=== PATIENT | female | born 1990 | race Caucasian/White ===

== ENCOUNTER 2020-06-22 00:23 | Inpatient (IN) | payer MEDICAID ==
[~2020-06-22] VITALS: Ht 157.5 cm; Wt 74.8 kg
[2020-06-22] MEDS ORDERED: PHISODERM TOP SOLN 240ML BTL TOP PRN (01:00)
[2020-06-22] MEDS ORDERED: WITCH HAZEL-GLYCERIN PAD TOP PRN (01:00)
[2020-06-22] MEDS ORDERED: BUTORPHANOL TARTRATE 2 MG/1 ML VIAL IV PRN ×2 (01:00)
[2020-06-22] MEDS ORDERED: LIDOCAINE 2%HCL (LOCAL ANESTH.) INJ 20ML MDV IJ ONE (01:00)
[2020-06-22] MEDS ORDERED: PROMETHAZINE HCL 25 MG/ML 1ML IV PRN (01:00)
[2020-06-22] MEDS ORDERED: DERMOPLAST 60ML BOTTLE TOP PRN (01:00)
[2020-06-22] MEDS ORDERED: PREN-129 OR (01:12)
[2020-06-22] MEDS ORDERED: LACT. RINGERS/OXYTOCIN 20UNITS 1,000 ML IV SCH (01:15)
[2020-06-22] MEDS ORDERED: LACT. RINGERS/OXYTOCIN 20UNITS 1,000 ML IV ONE (01:15)
[2020-06-22] MEDS ORDERED: TERBUTALINE SULFATE 1 MG/ML 1ML VIAL SC ONE (01:15)
[2020-06-22 01:58] LABS: Basophils # (auto) 0 10 ^3/uL (0-0.2); Basophils % (auto) 0.4 % (0.0-2.0); Eosinophils # (auto) 0.1 10 ^3/uL (0-0.8); Eosinophils % (auto) 0.7 % (0.0-7.0); Hematocrit 38.9 % (36.0-46.0); Hemoglobin 13.3 g/dL (12.2-16.2); Lymphocytes % (auto) 19.3 % (10.0-50.0); Mean Corpuscular Hemoglobin 31.4 pg (28.0-32.0); Mean Corpuscular Hgb Conc. 34.1 g/dL (32.0-36.0); Mean Corpuscular Volume 92.1 fL (80.0-100.0); Monocytes # (auto) 0.7 10 ^3/uL (0-1.3); Monocytes % (auto) 6.7 % (0.0-12.0); Neutrophils # (auto) 7.8 10 ^3/uL (1.6-8.6); Neutrophils % (auto) 72.9 % (37.0-80.0); Platelet Count (auto) 147 10^3/uL (140-450); Red Blood Cells 4.22 10^6/uL (4.0-5.20); Red Cell Distribution Width 13.8 % (11.8-14.3); White Blood Cell 10.6 10^3/uL (4.4-10.8)
[2020-06-22 02:11] LABS: Urine Bacteria FEW /hpf (None Seen); Urine Blood Negative /uL (Negative); Urine Specific Gravity 1.004 (1.001-1.035); Urine WBC <1 /hpf (0 - 5)
[2020-06-22 02:17] LABS: Potassium 3.6 mmol/L (3.5-5.1)
[2020-06-22 02:18] LABS: Alcohol, Urine < 3.0 mg/dL (0-10); Amphetamine Screen, Urine NEGATIVE (NEGATIVE); Barbiturate Scree,Urine NEGATIVE (NEGATIVE); Benzodiazephine Screen, Urine NEGATIVE (NEGATIVE); Cannabinoid Screen, Urine NEGATIVE (NEGATIVE); Cocaine Screen, Urine NEGATIVE (NEGATIVE); Opiate Scree,Urine NEGATIVE (NEGATIVE); Phencyclidine Screen, Urine NEGATIVE (NEGATIVE)
[2020-06-22 02:19] LABS: INR 0.92 (0.9-1.15); Partial Thromboplastin Time 24.8 sec (23.0-31.2)
[2020-06-22 02:21] LABS: Albumin 3.2 g/dL (3.4-5.0); BUN/Creatinine Ratio 8.1; Calcium 8.6 mg/dL (8.5-10.1)
[2020-06-22] MEDS: LACTATED RINGER'S 1,000 ML IV SCH ×2 (02:22→09:00)
[2020-06-22 02:23] LABS: Bilirubin, Total 0.4 mg/dL (0.2-1.0); Total Protein 7.5 g/dL (6.4-8.2)
[2020-06-22] MEDS ORDERED: miSOPROStol 50 MCG per PRE-CUT 1/2 TAB PO PRN (02:45)
[2020-06-22] MEDS ORDERED: fentaNYL CITRATE 100 MCG/2 ML VL IV ONE ×2 (04:00→05:00)
[2020-06-22] MEDS ORDERED: SODIUM CHLORIDE 0.9% 500 ML IV PRN (04:00)
[2020-06-22] MEDS ORDERED: NALOXONE HCL 0.4 MG/ML VIAL IV ONE ×2 (04:00→05:00)
[2020-06-22] MEDS ORDERED: LACTATED RINGER'S 1,000 ML IV ONE ×2 (04:00→05:00)
[2020-06-22] MEDS ORDERED: ROPIVACAINE HCL 200 ML EPI SCH ×2 (04:00→05:00)
[2020-06-22] MEDS ORDERED: ePHEDrine SULFATE 50 MG/ML AMP IV ONE ×2 (04:00→05:00)
[2020-06-22] MEDS ORDERED: LIDOCAINE HCL 2 %PF INJ 10ML AMP IJ ONE ×2 (04:00→05:00)
--- NOTE | 2020-06-22 10:50 | NUR ---
Ambulation: Patient OOB with standby assistance by RN. Patient ambulated to bathroom with steady gait. Patient able to void without difficulty. [facility] teaching provided with returned demonstration by patient. Clean gown provided and bed linen changed. Patient ambulated back to bed with steady gait and no distress noted.
[2020-06-22 11:20] VITALS: BP 117/66
[2020-06-22] MEDS ORDERED: ACETAMINOPHEN 325 MG TAB PO PRN (11:30)
[2020-06-22] MEDS: IBUPROFEN 600 MG TAB PO PRN ×4 (11:53→21:21)
[2020-06-22 14:50] VITALS: BP 106/65
[2020-06-22 18:52] VITALS: BP 105/67
[2020-06-22 23:00] VITALS: BP 97/53
[2020-06-23 03:00] VITALS: BP 105/65
[2020-06-23] MEDS: IBUPROFEN 600 MG TAB PO PRN ×2 (03:08→08:01)
[2020-06-23 06:06] LABS: RPR Non Reactive (Non Reactive)
[2020-06-23 07:00] VITALS: BP 109/69
--- NOTE | 2020-06-23 08:00 | NUR ---
Upon bedside assessment, pt stated " They took out my IV yesterday"
--- NOTE | 2020-06-23 08:59 | NUR ---
Dr Jorgensen at bedside assessing patient, orders received for discharge
[2020-06-23 11:30] VITALS: BP 101/62
--- NOTE | 2020-06-23 12:30 | NUR ---
Discharge: Discharge instructions given as ordered. Pt encouraged to follow up with [facility] as instructed. [facility] " HOW TO SAVE YOUR LIFE" handout provided and discussed in detail, maternal mental health resource handout provided and discussed in detail All questions and concerns addressed. Patient verbalized understanding. Medication reconciliation completed and copy given to patient. All required/requested vaccines given and copies of vaccinations given to patient. Patient encouraged to prepare to depart unit.
--- NOTE | 2020-06-23 13:10 | NUR ---
Discharge: Patient taken to vehicle via wheelchair with all personal belongings, accompanied by staff and family member. No distress noted at time of departure, no adverse changes in status since initial assessment.
== END 2020-06-23 13:10 | disposition home or self-care (01) | DRG 560 ==
LOC: LDRP 00:23 → OBSVTOIN 00:23 → LDRP 01:02
PROVIDERS: ADMIT Obstetrics & Gynecology; ATTEND Obstetrics & Gynecology
PROC: 10E0XZZ Delivery of Products of Conception, External Approach (ICD-10-PCS; principal; 2020-06-22)
PROC: 3E0P7VZ Introduction of Hormone into Female Reproductive, Via Natural or Artificial Opening (ICD-10-PCS; 2020-06-22)
PROC: 3E0R3BZ Introduction of Anesthetic Agent into Spinal Canal, Percutaneous Approach (ICD-10-PCS; 2020-06-22)
PROC: 00HU33Z Insertion of Infusion Device into Spinal Canal, Percutaneous Approach (ICD-10-PCS; 2020-06-22)
PROC: 0HQ9XZZ Repair Perineum Skin, External Approach (ICD-10-PCS; 2020-06-22)
DX: O42.92 Full-term premature rupture of membranes, unspecified as to length of time between rupture and onset of labor (principal); O76 Abnormality in fetal heart rate and rhythm complicating labor and delivery; O77.0 Labor and delivery complicated by meconium in amniotic fluid; Z37.0 Single live birth; Z3A.39 39 weeks gestation of pregnancy; Z20.828 Contact with and (suspected) exposure to other viral communicable diseases; O70.0 First degree perineal laceration during delivery
CPT/HCPCS: 36415; 59025; 59409; 62282; 80053; 80307; 81001; 81002; 84112; 85025; 85610; 85730; 86592; 86850; 86900; 86901; 87426; 94760; 96360; 96361; 96374; G0378; J2590

== ENCOUNTER 2022-04-14 13:10 | Inpatient (IN) | payer MEDICAID ==
[~2022-04-14] VITALS: Ht 30.5 cm; Wt 0.5 kg
[~2022-04-14 13:10] MED LIST: PREN-129 OR
[2022-04-14] MEDS ORDERED: LACT. RINGERS/OXYTOCIN 20UNITS 1,000 ML IV ONE (14:28)
[2022-04-14] MEDS ORDERED: BUTORPHANOL TARTRATE 2 MG/1 ML VIAL IV PRN ×2 (14:45)
[2022-04-14] MEDS ORDERED: PROMETHAZINE HCL 25 MG/ML 1ML IV PRN (14:45)
[2022-04-14] MEDS ORDERED: LACT. RINGERS/OXYTOCIN 20UNITS 500 ML IV ONE ×2 (14:45→15:15)
[2022-04-14] MEDS ORDERED: LIDOCAINE 2%HCL (LOCAL ANESTH.) INJ 10ml MDV IJ PRN (14:45)
[2022-04-14] MEDS ORDERED: PHISODERM TOP SOLN 240ML BTL TOP PRN (14:45)
[2022-04-14] MEDS ORDERED: DERMOPLAST 60ML BOTTLE TOP PRN (14:45)
[2022-04-14] MEDS ORDERED: LACTATED RINGER'S 1,000 ML IV SCH (14:45)
[2022-04-14] MEDS ORDERED: miSOPROStol 100 mcg TAB SL PRN (15:30)
[2022-04-14] MEDS ORDERED: CARBOPROST TROMETHAMINE 250 MCG/1ML VIAL IM PRN (15:30)
[2022-04-14] MEDS ORDERED: METHYLERGONOVINE MALEATE 0.2 MG/ML AMP IM PRN (15:30)
[2022-04-14] MEDS ORDERED: miSOPROStol 100 mcg TAB PR PRN (15:30)
[2022-04-14 15:41] LABS: Albumin 3.1 g/dL (3.4-5.0); Calcium 8.5 mg/dL (8.5-10.1); Potassium 3.5 mmol/L (3.5-5.1)
[2022-04-14 15:45] LABS: BUN/Creatinine Ratio 12.7; Bilirubin, Total 0.4 mg/dL (0.2-1.0); Total Protein 6.9 g/dL (6.4-8.2)
[2022-04-14] MEDS ORDERED: NS/OXYTOCIN 20UNITS 500 ML IV ONE (15:45)
[2022-04-14] MEDS ORDERED: ONDANSETRON ODT 4 MG TAB PO PRN (15:45)
[2022-04-14 15:49] LABS: INR 0.87 (0.9-1.15); Partial Thromboplastin Time < 20.0 sec (24.6-33.4)
[2022-04-14 15:52] LABS: Basophils # (auto) 0.1 10 ^3/uL (0-0.2); Basophils % (auto) 0.4 % (0.0-2.0); Eosinophils # (auto) 0 10 ^3/uL (0-0.8); Eosinophils % (auto) 0.1 % (0.0-7.0); Hematocrit 37.2 % (36.0-46.0); Hemoglobin 12.4 g/dL (12.2-16.2); Lymphocytes % (auto) 14.5 % (10.0-50.0); Mean Corpuscular Hemoglobin 30.1 pg (28.0-32.0); Mean Corpuscular Hgb Conc. 33.3 g/dL (32.0-36.0); Mean Corpuscular Volume 90.3 fL (80.0-100.0); Monocytes # (auto) 0.5 10 ^3/uL (0-1.3); Monocytes % (auto) 3.5 % (0.0-12.0); Neutrophils # (auto) 11.4 10 ^3/uL (1.6-8.6); Neutrophils % (auto) 81.5 % (37.0-80.0); Nucleated Red Blood Cells % 0.1 %; Red Blood Cells 4.11 10^6/uL (4.0-5.20); Red Cell Distribution Width 13.6 % (11.8-14.3)
[2022-04-14] MEDS: IBUPROFEN 800 MG TAB PO SCH (16:51)
[2022-04-14] MEDS: WITCH HAZEL-GLYCERIN PAD TOP PRN (16:52)
[2022-04-14] MEDS ORDERED: LIDOCAINE 2%HCL (LOCAL ANESTH.) INJ 20ML MDV ONE (17:54)
[2022-04-14 19:00] VITALS: BP 113/75
[2022-04-14] MEDS: ACETAMINOPHEN 325 MG TAB PO PRN (19:47)
[2022-04-14] MEDS ORDERED: DOCUSATE SOD 100 MG CAP PO SCH (22:00)
[2022-04-14 23:30] VITALS: BP 97/61
[2022-04-15] MEDS: IBUPROFEN 800 MG TAB PO SCH (00:25)
[2022-04-15 03:30] VITALS: BP 100/60
[2022-04-15] MEDS: ACETAMINOPHEN 325 MG TAB PO PRN (03:53)
[2022-04-15] MEDS: WITCH HAZEL-GLYCERIN PAD TOP PRN (04:01)
[2022-04-15] MEDS ORDERED: IBUPROFEN 800 MG TAB PO PRN (04:30)
[2022-04-15 07:00] VITALS: BP 98/53
[2022-04-15 08:06] LABS: RPR Non Reactive (Non Reactive)
[2022-04-15 11:00] VITALS: BP 102/70
[2022-04-15 15:00] VITALS: BP 110/62
== END 2022-04-15 18:08 | disposition home or self-care (01) | DRG 560 ==
LOC: LDRP 13:10 → OBSVTOIN 14:35 → LDRP 14:40
PROVIDERS: ADMIT Obstetrics & Gynecology; ATTEND Obstetrics & Gynecology
PROC: 10E0XZZ Delivery of Products of Conception, External Approach (ICD-10-PCS; principal; 2022-04-14)
PROC: 0HQ9XZZ Repair Perineum Skin, External Approach (ICD-10-PCS; 2022-04-14)
DX: O42.92 Full-term premature rupture of membranes, unspecified as to length of time between rupture and onset of labor (principal); Z37.0 Single live birth; O62.3 Precipitate labor; O70.0 First degree perineal laceration during delivery; Z20.822 Contact with and (suspected) exposure to COVID-19; Z3A.39 39 weeks gestation of pregnancy
CPT/HCPCS: 36415; 59025; 59409; 80053; 85025; 85610; 85730; 86592; 86850; 86900; 86901; 94760; 96360; 96361; 96365; 96366; G0378; J2590